=== PATIENT | female | born 1970 | race Caucasian/White ===

== ENCOUNTER 2022-06-27 21:29 | Emergency (ER) | payer MEDICAID ==
[~2022-06-27] VITALS: Ht 157.5 cm; Wt 77.1 kg
--- NOTE | 2022-06-27 21:30 | NUR ---
Pt brought by self, A&Ox4, pt presents to ER with R arm pain x 1 week, denies trauma, skin pink and warm, cap refill <3, VSS
[2022-06-27 21:35] VITALS: BP_SYST 131
--- NOTE | 2022-06-27 23:00 | NUR ---
ER at bedside examining patient.
--- NOTE | 2022-06-27 23:01 | NUR ---
Patient to ER bed H1 to gown for evaluation. Side rails up.
--- NOTE | 2022-06-27 23:03 | NUR ---
Note elayne in [facility] - 06/27/22 at 2303 by [email or web address] Patient to ER bed H1 to gown for evaluation. Side rails up.
--- NOTE | 2022-06-27 23:20 | NUR ---
Pt brought by self, A&Ox4, pt presents to ER with R arm pain x 1 week, denies trauma, skin pink and warm, cap refill <3, VSS pt states numbness from tips of finger to elbow for past week. Past medical history arthritis. Pt denies headache.
[2022-06-28] MEDS ORDERED: KETOROLAC TROMETHAMINE 15 MG VIAL IM ONE (00:30)
--- NOTE | 2022-06-28 00:32 | NUR ---
PT AMBULATES WITH STEADY GAIT TO RADIOLOGY DEPT. FOR XRAY.
[2022-06-28] MEDS ORDERED: IBUP-1969 PO (01:41)
--- NOTE | 2022-06-28 02:03 | NUR ---
Patient given written and verbal discharge instructions and verbalizes understanding. ER MD discussed with patient the results and treatment provided. Patient in stable condition. ID arm band removed. Rx of IBUPROFEN given. Patient educated on pain management and to follow up with PMD. Opportunity for questions provided and answered. Medication side effect fact sheet provided.
[2022-06-28 02:04] VITALS: BP_SYST 130
== END 2022-06-28 02:04 | disposition home or self-care (01) ==
LOC: SED 21:29
DX: M79.18 Myalgia, other site (principal); M79.631 Pain in right forearm; M25.521 Pain in right elbow; Z79.899 Other long term (current) drug therapy
CPT/HCPCS: 99283; 73080; 96372; J1885